=== PATIENT | male | born 1985 | race Caucasian/White ===

== ENCOUNTER → 2020-10-27 | Outpatient (CLI) | payer OTHER ==
--- NOTE | 2020-10-28 03:38 | REP ---
INDICATION: SOB COMPARISON: None. TECHNIQUE: PA and lateral. FINDINGS: The mediastinum and cardiac silhouette are normal. The lung jarrell are clear and without acute consolidation, effusion, or pneumothorax. The skeletal structures are intact and normal. IMPRESSION: No acute cardiopulmonary process. <Electronically signed by Ray Rodriguez > 10/28/20 [id number]
== END ==
LOC: M WUC 14:29
PROVIDERS: ATTEND Nurse Practitioner Family
DX: R06.02 Shortness of breath (principal)

== ENCOUNTER → 2020-10-31 | Outpatient (CLI) | payer OTHER ==
--- NOTE | 2020-11-01 09:25 | REP ---
INDICATION: LUMP ON LEFT SIDE OF RIB CAGE. COMPARISON: None. TECHNIQUE: Real-time sonographic evaluation of left chest wall performed at the site of the palpable lump. FINDINGS: There is a solid mass at the site of the palpable lump which measures 4.6 x 6.1 x 1.6 cm. This may represent a lipoma. There is no significant increased blood flow with Doppler evaluation within the mass. IMPRESSION: Solid mass lateral left chest wall 4.6 x 6.1 x 1.6 cm. This may represent a lipoma. Recommend confirmation with MRI with and without contrast. <Electronically signed by Андрей Oliva > 11/01/20 [id number]
== END ==
LOC: M RAD 11:13
PROVIDERS: ATTEND Nurse Practitioner Family
DX: R22.2 Localized swelling, mass and lump, trunk (principal)